=== PATIENT | female | born 1995 | race Caucasian/White ===

== ENCOUNTER 2018-01-19 19:30 | Inpatient (IN) | payer OTHER ==
[2018-01-19 20:48] LABS: BASO % 0.3 % (0-2.0); EOS % 0.6 % (0-4.5); HEMATOCRIT 30.7 % (32.4-45.2); HEMOGLOBIN 10.4 GM/dL (10.7-15.3); LYMPH % 17.6 % (8-40); MCH 29.3 pg (25.7-33.7); MCHC 33.9 g/dl (32.0-36.0); MEAN CELL VOLUME 86.5 fl (80-96); MONO % 7.1 % (3.8-10.2); NEUT % 74.4 % (42.8-82.8); PLATELET COUNT 193 K/MM3 (134-434); RBC 3.55 M/mm3 (3.60-5.2); RDW 14.4 % (11.6-15.6); WHITE BLOOD COUNT 8.2 K/mm3 (4.0-10.0)
[2018-01-19 20:59] LABS: INR 0.95 (0.82-1.09); PROTHROMBIN TIME (PATIENT) 10.7 SEC (9.98-11.88)
[2018-01-19] MEDS ORDERED: DINOPROSTONE 10 MG VAGINAL SUPPOSITORY VG ONE (21:00)
[2018-01-19] MEDS ORDERED: DEXTROSE 5%-LACTATED RINGERS 1,000 ML IV SCH (21:00)
[2018-01-19] MEDS: DEXTROSE 5%-LACTATED RINGERS 1,000 ML IV SCH (21:00)
[2018-01-19] MEDS ORDERED: levETIRAcetam 250 MG TABLET (FP) PO SCH (21:00)
[2018-01-19 21:02] LABS: ACTIVATED PTT 24.2 SECONDS (26.9-34.4)
[2018-01-19 21:09] LABS: ANION GAP 11 (8-16); BLOOD UREA NITROGEN 10 mg/dL (7-18); CALCIUM 8.5 mg/dL (8.5-10.1); CHLORIDE 106 mmol/L (98-107); CO2 22 mmol/L (21-32); CREATININE 0.5 mg/dL (0.55-1.02); GLUCOSE,RANDOM 82 mg/dL (74-106); POTASSIUM 4.1 mmol/L (3.5-5.1); SODIUM 139 mmol/L (136-145)
[2018-01-19] MEDS ORDERED: levETIRAcetam 500 MG TABLET (FP) PO ONE (22:15)
[2018-01-19 22:55] VITALS: BMI 31.3
[2018-01-20] MEDS: DEXTROSE 5%-LACTATED RINGERS 1,000 ML IV SCH ×3 (01:30→16:35)
[2018-01-20] MEDS ORDERED: SODIUM PHOSPHATE/NA BIPHOS 133 ML ENEMA RC ONE (06:00)
[2018-01-20] MEDS: levETIRAcetam 250 MG TABLET (FP) PO SCH ×2 (09:30→21:16)
--- NOTE | 2018-01-20 09:33 | CON.NEURO ---
Consult - Past Medical History ...LMP: 04/28/17 - Alcohol/Substance Use Hx Alcohol Use: No - Smoking History Smoking history: Former smoker Have you smoked in the past 12 months: No If you are a former smoker, when did you quit?: prior to Home Medications - Allergies Allergies/Adverse Reactions: Allergies Allergy/AdvReac Type Severity Reaction Status Date / Time No Known Allergies Allergy Verified 01/19/18 23:07 - Home Medications Home Medications: Ambulatory Orders levETIRAcetam [Keppra -] 750 mg PO BID 10/09/17 Physical Exam-Neuro Vital Signs: Vital Signs Temperature 98.0 F 01/20/18 06:00 Pulse Rate 62 01/20/18 08:00 Respiratory Rate 17 01/20/18 08:00 Blood Pressure 108/62 01/20/18 08:00 O2 Sat by Pulse Oximetry (%) Labs: CBC, BMP 01/19/18 20:15 01/19/18 20:15 INR, PTT INR 0.95 (0.82-1.09) 01/19/18 20:15 Assessment/Plan cc Episode of seizure yesterday HPI 22 year old female history of epilepsy since age of 13. She was diagnosed with hydrocephalus and she had deedee hole surgery , and had twice drained. Patient do get chronic headhace . Patient also suffers from depression was suppose to be on abilify but was stopped due to She was suppose to be taking keppra 750 mg po bid and she reduce dose to once a day. Patient had seizure two days ago and one episode one month ago. Patient having headhace and on previous occasion she went [facility]. She is being induced She described seizure as tonic clonic activity, sometime tongue bite and post ictal confusion Past Medical History as above SH,FH, ROS reviewed in chart Neurological Examination VSS Alert oriented x 3 CN all intact, eomi, pupils reactive and no face asymmetry moving all extremity sensory exm is normal no ct head available Assessment- 22 YEAR OLD female history of Hydrocephalus, seizures and depression. Patient had ct head done in past one year and no records available. Patient had deedee hole surgery and removal of csf when she was 13 and 15 Plan - given she has seizure and she is having breakthrough seizure, She was loaded with keppra 1 gm last night and continue 750 mg po bid - In case she had seizure, her electrolyte, puls ox and serum glucose can be checked and she can be given iv ativan to breakthrough seizure and extra one gram of keppra can be given and Medical team can be consulted Thanking you so much Alex Peace MD Please feel free to call me if you have any question
[2018-01-20] MEDS ORDERED: ACETAMINOPHEN 325 MG TABLET (FP) PO ONE (10:26)
[2018-01-20] MEDS ORDERED: OXYTOCIN 30 UNITS in 0.9% NS 30 UNIT/500 ML INFUS.BAG IVPB SCH (10:30)
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
[2018-01-20] MEDS ORDERED: PROMETHAZINE HCL 25 MG/1 ML VIAL IVPUSH ONE (15:02)
[2018-01-20] MEDS ORDERED: BUTORPHANOL TARTRATE 1 MG/ML VIAL IVPUSH ONE (15:02)
--- NOTE | 2018-01-20 15:04 | PN ---
Progress Note, Labor Vaginal Exam #1 Labor Exam Date: 01/20/18 Labor Exam Time: 15:00 Heart Rate (range): 130 Dilatation: 1-2 Effacement (%): 70 Amniotic Membrane Status: Intact Presentation: Vertex/Position Station: -2 Remarks: FHR cat-1 ut contractions dysfunctional 1-3 min c/o headache Plan iv stadol 2mg + phenrgan 25 mg iv stat Selected Entries 01/20/18 14:00 Temperature 97.8 F Pulse Rate 58 L Blood Pressure 119/74 Vaginal Exam #2 Labor Exam Date: 01/20/18 Labor Exam Time: 17:30 Heart Rate (range): 130 Dilatation: 2 Effacement (%): 70 Amniotic Membrane Status: Intact Presentation: Vertex/Position Station: -3 Remarks: fhr cat-1 uc 2-4 min . Pt is unable to tolerate pain. she wants to leave the hosp. I offered her epidural for pain managemant she refuses induction & pitocin to be continued . She agrees for c/section . Plan stop Pitocin Induction . prepare for c/section
[2018-01-20] MEDS ORDERED: CITRIC ACID/SODIUM CITRATE 30 ML UNIT-DOSE CUP PO ONE (17:44)
[2018-01-20] MEDS ORDERED: ELECTROLYTE-148 SOLN 1,000 ML IV SCH (17:45)
[2018-01-20] MEDS ORDERED: SUCCINYLCHOLINE CHLORIDE 200 MG/10 ML VIAL ONE (19:06)
[2018-01-20] MEDS ORDERED: PROPOFOL 20 ML ONE (19:07)
[2018-01-20] MEDS ORDERED: ceFAZolin SODIUM 1 GM VIAL ONE (19:08)
[2018-01-20] MEDS ORDERED: DEXAMETHASONE SOD PHOSPHATE 4 MG/1 ML VIAL ONE (19:23)
[2018-01-20] MEDS ORDERED: OXYTOCIN 10 UNITS/ML VIAL ONE ×2 (19:23→19:35)
[2018-01-20 19:58] LABS: ARTERIAL BLOOD GAS BASE EXCESS -1.8 meq/l (-2-2); ARTERIAL BLOOD GAS PCO2 57.9 mmHg (35-45); ARTERIAL BLOOD GAS pH 7.27 (7.35-7.45)
[2018-01-20] MEDS ORDERED: METHYLERGONOVINE MALEATE 0.2 MG/1 ML AMP IM PRN (20:07)
[2018-01-20 20:09] LABS: ARTERIAL BLD GAS O2 SATURATION 32.9 % (90-98.9)
[2018-01-20 20:11] LABS: VENOUS PH 7.33 (7.32-7.42)
[2018-01-20 20:12] LABS: VENOUS PC02 42.6 mmHg (38-52); VENOUS PO2 51.7 mmHg (28-48)
[2018-01-20] MEDS ORDERED: OXYTOCIN 20 UNITS in 0.9% NS 20 UNIT/1,000 ML INFUS.BAG IV SCH (20:15)
[2018-01-20] MEDS ORDERED: ONDANSETRON 4 MG/2 ML VIAL IVPUSH PRN (20:17)
[2018-01-20] MEDS ORDERED: HYDROmorphone HCL CARPU-JECT 1 MG/1 ML DISP.SYRIN IVPUSH ONE ×2 (20:20→20:45)
--- NOTE | 2018-01-20 20:21 | OP ---
Operative Note - Note: Operative Date: 01/20/18 Pre-Operative Diagnosis: 40.5 weeks , failed induction of labor , seizure disorder Operation: primary lftc/s Findings: 7.22 Pm , baby boy, vx Lot, 8/9 , wt 6'2" Ht 18.5" both tubes & ovaries normal Dr collazo present inthe OR Surgeon: Madie Ta Carpet Inspector: Herman Cardona Anesthesiologist/CRIMINOLOGY PROFESSOR: Kuldeep Westfall Anesthesia: General Specimens Removed: placenta. cord blood gas. cord blood Estimated Blood Loss (mls): 600 Drains, Volume Out (mls): 150 (mauro color ) Fluid Volume Replaced (mls): 1,000 (iv ancef 1 gm ivpb ) Operative Report Dictated: Yes
[2018-01-20] MEDS ORDERED: ACETAMINOPHEN 1000 MG/100 ML VIAL (NON FORMULARY) IVPB ONE (20:22)
[2018-01-20] MEDS ORDERED: HYDROmorphone HCL CARPU-JECT 1 MG/1 ML DISP.SYRIN ONE (20:26)
[2018-01-20] MEDS ORDERED: HYDROmorphone *PCA* 10MG/50ML DISP.SYRIN PCA SCH ×2 (20:30→20:45)
[2018-01-20] MEDS ORDERED: HYDROmorphone *PCA* 6MG/30ML DISP.SYRIN PCA SCH (20:30)
--- NOTE | 2018-01-20 20:45 | PN ---
Delivery - Delivery Section: Primary, Low Flap Transverse (40.5 weeks , failed induction of labor , seizure disorder) Type of Anesthesia: General Episiotomy/Laceration: None EBL (cc): 600 (huang out put 150 ml ) Delivery, Single - Stages of Labor Date 1st Stage Initiatied: 01/20/18 Time 1st Stage Initiated: 14:30 Date of Delivery: 01/20/18 Time of Delivery: 19:22 Time Placenta Delivered: :23 Placenta: Yes: Manual Removal, Uterine Exploration - Condition of Mail Room/Quantitative Manager Present: Yes Name: Mary Lou Simmons Infant Gender: Male Weight: 6 lb 2 oz Position: Left, OT Total Hours ROM (Hrs/Mins): 0hrs 2min - 1 Minute Total Score: 8 5 Minutes Total Score: 9 - Feeding Plan Initial Plan: Elected not to breastfeed exclusively throughout hospitalization Remarks - Remarks Remarks: 22 yrs , 40 .5 weeks, gbs neg pnc at 2, [facility] h/o sizure disorder , rx keppra 750 mg bid recommended, pt was taking only one a day , last seizure on 01/18/18 neuro consult intrapartum ontained , Ct rx po keppra 750 mg bid 01/19/18 cervidil inserted for induction 01/20/18 pitocin induction, pt uncooperative, refused to continue induction, requests for c/section Intra op course uneventful rx
[2018-01-20] MEDS ORDERED: ACETAMINOPHEN INJECTION 100 ML IVPB ONE (20:47)
[2018-01-20] MEDS ORDERED: HYDROmorphone *PCA* 6MG/30ML DISP.SYRIN PCA ONE (21:06)
[2018-01-20] MEDS: HYDROmorphone *PCA* 6MG/30ML DISP.SYRIN PCA SCH (21:13)
--- NOTE | 2018-01-20 23:10 | OP ---
DATE OF OPERATION: 01/20/2018 PREOPERATIVE DIAGNOSIS: 40.5 weeks for induction of labor. POSTOPERATIVE DIAGNOSIS: 40.5 weeks for induction of labor. PROCEDURE DONE: Primary low transverse section. SURGEON: Madie Ta M.D. CARDIOVASCULAR RADIOLOGIC TECHNOLOGIST SURGEON: Caitlin Leiva ANESTHESIOLOGIST: Kuldeep Westfall D.O. ANESTHESIA: General. FINDINGS: This is a 22-year-old 2 para 0-0-1-0, is 40.5 weeks and has history of a seizure disorder and had seizure on January 18, and she was on Keppra 750 b.i.d. She was taking irregularly and maybe once a day only, and history of hydrocephalus diagnosed and she has history of deedee hole surgery done for release of hydrocephalus. , Since there were no notes from the previous neurologist consults , anesthesiologist decided to give general anesthesia. Patient was induced with cervidil followed by , pitocin , cx dilated 2 cm, but she refused to continue induction of labor. PROCEDURE: Patient was taken to the operating room table, and Arango catheter was placed. Abdomen was shaved, prepped. Abdomen was painted and draped in usual manner. General anesthesia was given. Pfannenstiel incision was made through skin, subcutaneous tissue. Anterior rectus sheath was incised transversely. Bleeding points were clamped and cauterized. Rectus muscle was from the rectus sheath. The parietal peritoneum was opened vertically. And then lower uterine segment was incised transversely. Before that lower bladder peritoneum was incised transversely. Bladder was pushed and then the lower uterine segment was incised transversely and amniotic fluid was cleared. Baby boy was delivered at 7:22 p.m. from the LOT position. was 8, 9. Weight was 6 pounds 2 ounces. Cord was clamped, cut. Cord blood was collected, and also cord segment was sent for the cord blood gas. Placenta was removed completely with the membranes and sent for pathology examination. Then the closure of the uterine incision was done. Uterine cavity was cleaned complete. The uterine incision first layer was Biosyn 0 continuos locking suture. Second layer was continuous with Biosyn intermittent locking and with vertical mattress sutures. Bladder peritoneum was also closed with Biosyn 0 suture. Then both tubes and ovaries were normal. Irrigation was done. Sponge, instrument, needle counts were correct. Closure of the uterine incision was done in 2 layers. Parietal peritoneum was closed with the Vicryl 0 suture. Then muscles were approximated with 0 Vicryl interrupted sutures. Anterior rectus sheath was closed with 0 Vicryl continuous sutures. Hemostasis was checked below the anterior rectus sheath before closing the anterior rectus sheath. Subcutaneous tissue, interrupted sutures were taken, and the skin was approximated with the benoit. Patient tolerated procedure well. Estimated blood loss was 600 mL. The urine output intraoperatively was 150 mL. Prior to the incision she was given IV Ancef 1 g. Patient tolerated procedure well, and she was transferred to the recovery room in stable condition. Silas [id number] MTDD
[2018-01-21] MEDS: CEFAZOLIN 1 GM/D5W 1 GM/50 ML BAG IVPB SCH ×3 (02:12→17:01)
[2018-01-21 07:57] LABS: BASO % 0.2 % (0-2.0); HEMATOCRIT 29.9 % (32.4-45.2); HEMOGLOBIN 9.8 GM/dL (10.7-15.3); LYMPH % 12.9 % (8-40); MCH 28.5 pg (25.7-33.7); MCHC 32.7 g/dl (32.0-36.0); MEAN PLT VOLUME 10.4 fl (7.5-11.1); MONO % 6.7 % (3.8-10.2); NEUT % 80.2 % (42.8-82.8); PLATELET COUNT 159 K/MM3 (134-434); RBC 3.44 M/mm3 (3.60-5.2); RDW 14.2 % (11.6-15.6); WHITE BLOOD COUNT 14.5 K/mm3 (4.0-10.0)
[2018-01-21] MEDS ORDERED: ACETAMINOPHEN 325 MG TABLET (FP) PO PRN (08:00)
--- NOTE | 2018-01-21 08:15 | PN ---
Post Progress Note - Subjective Subjective: no c/o pain . pt using QUAL FIELD MANAGER pt appears pleasnt Post Day: 1 Type of Delivery: Primary C/S Vital Signs: Vital Signs Temperature 98.3 F 01/21/18 06:45 Pulse Rate 65 01/21/18 06:45 Respiratory Rate 20 01/21/18 06:45 Blood Pressure 118/65 01/21/18 06:45 O2 Sat by Pulse Oximetry (%) 100 01/20/18 21:00 Breast Exam: Yes: Soft, Other (bottle feeding). No: Engorged Uterus: Yes: Fundus Firm, Fundus below umbilicus Incision: Yes: Dressing dry and intact. No: Redness, Oozing Abdomen/GI: Yes: Abdomen soft (bs active ), Tolerating PO (tolerating po fluids ). No: Abdominal Distention, Tender, Passing flatus Lochia: Yes: Rubra Lochia, amount: Moderate Extremities: Yes: Calves non-tender, Edema (scd in situ ) Perineum: Yes: Intact Activity: Other (not oob yet ) - Labs Labs: CBC WBC 14.5 K/mm3 (4.0-10.0) H D 01/21/18 07:00 RBC 3.44 M/mm3 (3.60-5.2) L 01/21/18 07:00 Hgb 9.8 GM/dL (10.7-15.3) L 01/21/18 07:00 Hct 29.9 % (32.4-45.2) L 01/21/18 07:00 MCV 87.0 fl (80-96) 01/21/18 07:00 MCH 28.5 pg (25.7-33.7) 01/21/18 07:00 MCHC 32.7 g/dl (32.0-36.0) 01/21/18 07:00 RDW 14.2 % (11.6-15.6) 01/21/18 07:00 Plt Count 159 K/MM3 (134-434) 01/21/18 07:00 MPV 10.4 fl (7.5-11.1) 01/21/18 07:00 Neutrophils % 80.2 % (42.8-82.8) 01/21/18 07:00 Lymphocytes % 12.9 % (8-40) D 01/21/18 07:00 Monocytes % 6.7 % (3.8-10.2) 01/21/18 07:00 Eosinophils % 0.0 % (0-4.5) D 01/21/18 07:00 Basophils % 0.2 % (0-2.0) 01/21/18 07:00 Other Findings, Remarks: i/o 1050/1000 huang draining mauro color urine RS cta Problem List - Problems (1) Post term over 40 weeks Code(s): O48.0 - POST-TERM (2) Elective induction of labor planned Code(s): [id number] - (3) Seizure Code(s): R56.9 - UNSPECIFIED CONVULSIONS (4) Anemia Code(s): D64.9 - ANEMIA, UNSPECIFIED Qualifiers: Anemia type: iron deficiency Iron deficiency anemia type: inadequate dietary iron intake Qualified Code(s): D50.8 - Other iron deficiency anemias (5) Failed induction of labor, delivered Code(s): O61.9 - FAILED INDUCTION OF LABOR, UNSPECIFIED (6) delivery due to maternal disorder, delivered, curr hospitaliz Code(s): O82 - ENCOUNTER FOR DELIVERY WITHOUT INDICATION; O99.89 - OTH DISEASES AND CONDITIONS COMPL PREG/CHLDBRTH Assessment/Plan ass s/p c/section day #1 , stable s/p seizure disorder anemia plan ct po Keppra change to po pain meds encourage ambulation, deep breathing, po fluids after huang is discontinued
[2018-01-21] MEDS ORDERED: oxyCODONE HCL 5 MG TABLET PO PRN (08:44)
[2018-01-21] MEDS: FERROUS SO4 325 MG TABLET (FP) PO SCH ×2 (08:52→18:30)
[2018-01-21] MEDS: SIMETHICONE 80 MG TAB.CHEW (FP) PO PRN ×3 (09:11→19:42)
[2018-01-21] MEDS: oxyCODONE HCL 5 MG TABLET PO PRN ×3 (09:11→19:42)
[2018-01-21] MEDS: ENOXAPARIN NA (PORCINE) 40 MG/0.4 ML DISP.SYRIN SQ SCH (10:10)
[2018-01-21] MEDS: levETIRAcetam 250 MG TABLET (FP) PO SCH ×2 (10:16→21:44)
[2018-01-21] MEDS: IBUPROFEN 600 MG TABLET (FP) PO PRN ×3 (10:17→19:43)
--- NOTE | 2018-01-21 13:57 | PN ---
Progress Note (short form) - Note Progress Note: HPI 22 year old female history of epilepsy since age of 13. She was diagnosed with hydrocephalus and she had deedee hole surgery , and had twice drained. Patient do get chronic headhace . Patient also suffers from depression was suppose to be on abilify but was stopped due to She was suppose to be taking keppra 750 mg po bid and she reduce dose to once a day. She was being induced later she was given epidural , I was called yesterday evening if they can given epidura. There was no contraindication. It went very well and she did deliver and both mom and baby are healthy. No seizure Neurological Examination VSS Alert oriented x 3 CN all intact, eomi, pupils reactive and no face asymmetry moving all extremity sensory exm is normal no ct head available Assessment- 22 YEAR OLD female history of Hydrocephalus, seizures and depression. Patient had ct head done in past one year and no records available. Patient had deedee hole surgery and removal of csf when she was 13 and 15 Plan - continue current level of medication and keppra and she can be given ativan if she had seizure would follow up outpatient Thanking you so much Alex Peace MD Please feel free to call me if you have any question
--- NOTE | 2018-01-21 16:54 | PN ---
Progress Note (short form) - Note Progress Note: POD #1 - s/p under general anesthesia with dilaudid DATA PROCESSOR for postop pain management. Pt. doing well, sitting comfortably in chair. No complaints. DATA PROCESSOR was discontinued earler today. Good pain control. No apparent anesthetic complications noted. Continue current care.
[2018-01-21] MEDS ORDERED: PCA PUMP KEY 1 EACH EACH ONE (18:07)
[2018-01-21] MEDS ORDERED: BISACODYL 10 MG SUPP.RECT RC PRN (20:07)
[2018-01-22] MEDS: IBUPROFEN 600 MG TABLET (FP) PO PRN ×3 (08:06→22:08)
[2018-01-22] MEDS: oxyCODONE HCL 5 MG TABLET PO PRN ×3 (08:07→22:07)
[2018-01-22] MEDS: SIMETHICONE 80 MG TAB.CHEW (FP) PO PRN ×3 (08:08→22:08)
[2018-01-22] MEDS: FERROUS SO4 325 MG TABLET (FP) PO SCH ×2 (08:08→17:44)
[2018-01-22] MEDS: levETIRAcetam 250 MG TABLET (FP) PO SCH ×2 (09:34→22:07)
[2018-01-22] MEDS: ENOXAPARIN NA (PORCINE) 40 MG/0.4 ML DISP.SYRIN SQ SCH (09:34)
[2018-01-22] MEDS: PRENATAL VITAMINS W/ FOLIC ACID TABLET (FP) PO SCH (09:42)
--- NOTE | 2018-01-22 10:26 | PN ---
Post Progress Note - Subjective Subjective: Pt feeling well. Ambulating. Pain well controlled. tolerating diet. +flatus Post Day: 2 Type of Delivery: Primary C/S Vital Signs: Vital Signs Temperature 98.2 F 01/22/18 07:50 Pulse Rate 70 01/22/18 07:50 Respiratory Rate 20 01/22/18 07:50 Blood Pressure 120/70 01/22/18 07:50 O2 Sat by Pulse Oximetry (%) 100 01/20/18 21:00 Breast Exam: Yes: Soft Uterus: Yes: Fundus Firm Incision: Yes: [place] intact Abdomen/GI: Yes: Abdomen soft Lochia: Yes: Rubra Lochia, amount: Small Extremities: Yes: Calves non-tender Perineum: Yes: Intact Activity: Ambulating - Labs Labs: CBC WBC 14.5 K/mm3 (4.0-10.0) H D 01/21/18 07:00 RBC 3.44 M/mm3 (3.60-5.2) L 01/21/18 07:00 Hgb 9.8 GM/dL (10.7-15.3) L 01/21/18 07:00 Hct 29.9 % (32.4-45.2) L 01/21/18 07:00 MCV 87.0 fl (80-96) 01/21/18 07:00 MCH 28.5 pg (25.7-33.7) 01/21/18 07:00 MCHC 32.7 g/dl (32.0-36.0) 01/21/18 07:00 RDW 14.2 % (11.6-15.6) 01/21/18 07:00 Plt Count 159 K/MM3 (134-434) 01/21/18 07:00 MPV 10.4 fl (7.5-11.1) 01/21/18 07:00 Neutrophils % 80.2 % (42.8-82.8) 01/21/18 07:00 Lymphocytes % 12.9 % (8-40) D 01/21/18 07:00 Monocytes % 6.7 % (3.8-10.2) 01/21/18 07:00 Eosinophils % 0.0 % (0-4.5) D 01/21/18 07:00 Basophils % 0.2 % (0-2.0) 01/21/18 07:00 Problem List - Problems (1) delivery due to maternal disorder, delivered, curr hospitaliz Assessment/Plan: Pt POD#2 s/p primary c/s continue routine postop care incentive spirometry pain management as needed ambulation encouraged Dr. Watkins Code(s): O82 - ENCOUNTER FOR DELIVERY WITHOUT INDICATION; O99.89 - OTH DISEASES AND CONDITIONS COMPL PREG/CHLDBRTH
[2018-01-22] MEDS: HYDROmorphone *PCA* 6MG/30ML DISP.SYRIN PCA SCH ×2 (22:22→22:23)
--- NOTE | 2018-01-23 07:19 | PN ---
Post Progress Note - Subjective Subjective: 22 yo Para 1 status post primary , seen and evaluated. She's lying comfortably in bed. No complaints. Post Day: 3 Type of Delivery: Primary C/S Vital Signs: Vital Signs Temperature 98.2 F 01/22/18 21:55 Pulse Rate 85 01/22/18 21:55 Respiratory Rate 18 01/22/18 21:55 Blood Pressure 110/53 01/22/18 21:55 O2 Sat by Pulse Oximetry (%) 100 01/20/18 21:00 Breast Exam: Yes: Soft Uterus: Yes: Fundus Firm Incision: Yes: [place] intact Abdomen/GI: Yes: Abdomen soft, Tolerating PO Lochia: Yes: Rubra Lochia, amount: Small Extremities: Yes: Calves non-tender Activity: Ambulating - Labs Labs: CBC WBC 14.5 K/mm3 (4.0-10.0) H D 01/21/18 07:00 RBC 3.44 M/mm3 (3.60-5.2) L 01/21/18 07:00 Hgb 9.8 GM/dL (10.7-15.3) L 01/21/18 07:00 Hct 29.9 % (32.4-45.2) L 01/21/18 07:00 MCV 87.0 fl (80-96) 01/21/18 07:00 MCH 28.5 pg (25.7-33.7) 01/21/18 07:00 MCHC 32.7 g/dl (32.0-36.0) 01/21/18 07:00 RDW 14.2 % (11.6-15.6) 01/21/18 07:00 Plt Count 159 K/MM3 (134-434) 01/21/18 07:00 MPV 10.4 fl (7.5-11.1) 01/21/18 07:00 Neutrophils % 80.2 % (42.8-82.8) 01/21/18 07:00 Lymphocytes % 12.9 % (8-40) D 01/21/18 07:00 Monocytes % 6.7 % (3.8-10.2) 01/21/18 07:00 Eosinophils % 0.0 % (0-4.5) D 01/21/18 07:00 Basophils % 0.2 % (0-2.0) 01/21/18 07:00 Assessment/Plan Status post primary Stable Continue routine post op care
[2018-01-23 08:36] LABS: BASO % 0.7 % (0-2.0); EOS % 1.5 % (0-4.5); HEMATOCRIT 29.1 % (32.4-45.2); HEMOGLOBIN 9.6 GM/dL (10.7-15.3); LYMPH % 29.1 % (8-40); MCH 28.6 pg (25.7-33.7); MCHC 32.9 g/dl (32.0-36.0); MEAN CELL VOLUME 86.9 fl (80-96); MEAN PLT VOLUME 9.9 fl (7.5-11.1); MONO % 7.9 % (3.8-10.2); NEUT % 60.8 % (42.8-82.8); PLATELET COUNT 171 K/MM3 (134-434); RBC 3.35 M/mm3 (3.60-5.2); RDW 14.3 % (11.6-15.6)
[2018-01-23] MEDS: FERROUS SO4 325 MG TABLET (FP) PO SCH ×2 (08:43→17:11)
[2018-01-23] MEDS: PRENATAL VITAMINS W/ FOLIC ACID TABLET (FP) PO SCH (10:04)
[2018-01-23] MEDS: ENOXAPARIN NA (PORCINE) 40 MG/0.4 ML DISP.SYRIN SQ SCH (10:04)
[2018-01-23] MEDS: oxyCODONE HCL 5 MG TABLET PO PRN ×2 (10:07→18:32)
[2018-01-23] MEDS: IBUPROFEN 600 MG TABLET (FP) PO PRN ×2 (10:08→18:32)
[2018-01-23] MEDS: levETIRAcetam 250 MG TABLET (FP) PO SCH ×2 (10:09→21:53)
[2018-01-23] MEDS: SIMETHICONE 80 MG TAB.CHEW (FP) PO PRN ×2 (10:09→18:33)
--- NOTE | 2018-01-23 16:44 | PN ---
Progress Note (short form) - Note Progress Note: 22 year old female history of epilepsy since age of 13. She was diagnosed with hydrocephalus and she had deedee hole surgery , and had twice drained. Patient do get chronic headhace . Patient also suffers from depression was suppose to be on abilify but was stopped due to She was suppose to be taking keppra 750 mg po bid and she reduce dose to once a day. She is tolerating medication well and no side effects of medication. Neurological Examination VSS Alert oriented x 3 CN all intact, eomi, pupils reactive and no face asymmetry moving all extremity sensory exm is normal no ct head available Assessment- 22 YEAR OLD female history of Hydrocephalus, seizures and depression. Patient had ct head done in past one year and no records available. Patient had deedee hole surgery and removal of csf when she was 13 and 15 Plan - continue keppra 750 mg po bid tolerating dose and follow up outpatient Please feel free to call me if you have any question
[2018-01-23 20:57] VITALS: TEMP 98.2
[2018-01-24] MEDS: FERROUS SO4 325 MG TABLET (FP) PO SCH (07:43)
[2018-01-24] MEDS: oxyCODONE HCL 5 MG TABLET PO PRN (07:48)
[2018-01-24] MEDS: IBUPROFEN 600 MG TABLET (FP) PO PRN (07:49)
[2018-01-24] MEDS: SIMETHICONE 80 MG TAB.CHEW (FP) PO PRN (07:50)
--- NOTE | 2018-01-24 09:23 | DS ---
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 Vital Signs: Vital Signs Temperature 98.2 F 01/23/18 20:56 Pulse Rate 79 01/23/18 20:56 Respiratory Rate 20 01/23/18 20:56 Blood Pressure 114/68 01/23/18 20:56 O2 Sat by Pulse Oximetry (%) 100 01/20/18 21:00 Constitutional: Yes: Well Nourished Eyes: Yes: Conjunctiva Clear HENT: Yes: Atraumatic Neck: Yes: Supple Cardiovascular: Yes: Regular Rate and Rhythm Respiratory: Yes: Regular Gastrointestinal: Yes: Normal Bowel Sounds External Genitalia: Yes: Normal Vaginal Exam: Yes: Normal Cervix: Yes: Normal Uterus: Yes: Firm Wound/Incision: Yes: Clean/Dry, Reading Intact Neurological: Yes: Alert, Oriented ...Motor Strength: WNL Psychiatric: Yes: Alert, Oriented Labs: CBC, BMP 01/23/18 07:45 01/19/18 20:15 Delivery - Delivery Section: Primary, Low Flap Transverse (40.5 weeks , failed induction of labor , seizure disorder) Type of Anesthesia: General Episiotomy/Laceration: None EBL (cc): 600 (huang out put 150 ml ) Delivery, Single - Stages of Labor Date 1st Stage Initiatied: 01/20/18 Time 1st Stage Initiated: 14:30 Date of Delivery: 01/20/18 Time of Delivery: 19:22 Time Placenta Delivered: 19:23 Placenta: Yes: Manual Removal, Uterine Exploration - Condition of 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/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 Present: Yes Name: Mary Lou Simmons Infant Gender: Male Weight: 6 lb 2 oz Position: Left, OT Total Hours ROM (Hrs/Mins): 0hrs 2min - 1 Minute Total Score: 8 5 Minutes Total Score: 9 - [place] Feeding Plan Initial Plan: Elected not to breastfeed exclusively throughout hospitalization Discharge Summary Reason For Visit: CERVIDIL INDUCTION Current Active Problems Anemia (Acute) delivery due to maternal disorder, delivered, curr hospitaliz (Acute) Elective induction of labor planned (Acute) Failed induction of labor, delivered (Acute) Post term over 40 weeks (Acute) Seizure (Acute) Procedures: Principal: Primary Low Transverse Hospital Course: Routine Post op care Condition: Good - Instructions Diet, Activity, Other Instructions: Regular diet No driving, no lifting for 4 weeks. F/U in clinic in 2 weeks Disposition: HOME - Home Medications Comprehensive Discharge Medication List: Ambulatory Orders levETIRAcetam [Keppra -] 750 mg PO BID 10/09/17
[2018-01-24] MEDS: PRENATAL VITAMINS W/ FOLIC ACID TABLET (FP) PO SCH (09:39)
[2018-01-24] MEDS: ENOXAPARIN NA (PORCINE) 40 MG/0.4 ML DISP.SYRIN SQ SCH (09:39)
[2018-01-24] MEDS: levETIRAcetam 250 MG TABLET (FP) PO SCH (09:40)
[2018-01-24 10:57] VITALS: BP 116/73; PULSE 65
--- NOTE | 2018-01-28 09:18 | PATH ---
Surgical Pathology Report Patient Name: MARCIN GUAN [facility]. Rec. #: [id number] /Age/Gender: 1995 (Age: 22) / F Account: [id number] Location: [facility] OBS/ARCHIVIST ECONOMIC HISTORY Taken: 01/21/2018 Received: 01/21/2018 Reported: 01/28/2018 Physicians: Madie Ta M.D. Specimen(s) Received PLACENTA Clinical History Final Diagnosis PLACENTA, DELIVERY: SMALL (333 gram) FOCALLY DISRUPTED THIRD TRIMESTER PLACENTA WITH THREE VESSEL UMBILICAL CORD AND UNREMARKABLE PLACENTAL MEMBRANES. Electronically Signed Turner Sifuentes M.D. Gross Description The specimen is received fresh labeled placenta and is a 333 gram, 16.0 x 15.5 x 2.2 cm. placenta with attached membranes and umbilical cord. The attached membranes are christensen, translucent with focal opacities and insert marginally. The umbilical cord measures 13 cm. in length and averages 1 cm. in diameter. The cord inserts eccentrically, 2 cm. to the nearest margin. No true knots or strictures are identified. Cut surface of the umbilical cord reveals 3 vessels. The surface is marshall-blue with minimal fibrin deposition and appropriate caliber vessels. The maternal surface is red-brown with focal defects. Sectioning reveals red-brown, spongy parenchyma. No lesions are identified. Data Security Administrator sections are submitted in three cassettes as follows: 1- membrane rolls and umbilical cord; 2-3- full thickness sections of placenta. /01/25/2018 [facility]01/25/2018
== END 2018-01-24 12:10 | disposition home or self-care (01) | DRG 540 ==
LOC: JLDR 19:30 → J3W 01-20 21:45
PROVIDERS: ADMIT Obstetrics & Gynecology; ATTEND Obstetrics & Gynecology
PROC: 3E0P7VZ Introduction of Hormone into Female Reproductive, Via Natural or Artificial Opening (ICD-10-PCS; 2018-01-19)
PROC: 10D00Z1 Extraction of Products of Conception, Low, Open Approach (ICD-10-PCS; principal; 2018-01-20)
DX: O61.0 Failed medical induction of labor (principal); O99.02 Anemia complicating childbirth; O48.0 Post-term pregnancy; O99.89 Other specified diseases and conditions complicating pregnancy, childbirth and the puerperium; G40.909 Epilepsy, unspecified, not intractable, without status epilepticus; Z3A.40 40 weeks gestation of pregnancy; Z37.0 Single live birth
CPT/HCPCS: 36415; 36600; 80048; 82803; 85025; 85610; 85730; 86593; 86850; 86900; 86901; 88307-TC; 94010; J0131; J1170

== ENCOUNTER 2018-04-25 16:53 | Emergency (ER) | payer OTHER ==
[2018-04-25] MEDS ORDERED: levETIRAcetam 500 MG/5 ML INJECTION VIAL IVPB ONE ×3 (17:59→18:39)
--- NOTE | 2018-04-25 18:00 | PDOC ---
Attending Attestation - Resident Resident Name: Zafar Valencia - ED Attending Attestation I have performed the following: I have examined & evaluated the patient, The case was reviewed & discussed with the resident, I agree w/resident's findings & plan, Exceptions are as noted - HPI HPI: 04/25/18 20:04 22-year-old female was leaving her neurologist office and had a seizure outside the building. Came in by ambulance and wanted to go home without any care. She was persuaded to stay to get a loading dose of her Keppra -Past medical history significant for epilepsy since age of 13. We did speak with her neurologist, Dr. Taylor who requested she get 1500 mg of Keppra before leaving - Physicial Exam PE: 04/25/18 20:08 Well-nourished, well developed 22-year-old female who is standing beside speaking with family member. Head normocephalic/atraumatic. Intraoral exam shows tongue trauma Eyes pupils equal, reactive to light and accommodation. Neck no cervical vertebral tenderness Lungs are clear to auscultation bilaterally CVS regular rate and rhythm S1, S2 Abdomen soft, nontender Extremities full range of mvmt, or deformities. Neuro she is alert and oriented 3, she is ambulating with ease - Medical Decision Making 04/25/18 20:10 Patient did receive a 1500mg IV dose of Keppra and is currently being discharged. Impression epilepsy. Plan follow-up with Dr. Sherman
--- NOTE | 2018-04-25 18:08 | PDOC ---
History of Present Illness - General Stated Complaint: SEIZURE - History of Present Illness Initial Comments: 04/25/18 18:05 22 year old female hx of epilepsy presents s/p seizure. She reports that she saw her neurologist Dr. Peace today, who increased her dose of Keppra to 1000 BID. Patient states that as she was leaving the office, she seized on her way out. Patient denies hitting her head but says she may have bitten her tongue. Denies any chest pain, shortness of breath, headache, nausea, vomiting, or diarrhea. Allergies: none Smoking: current Alcohol: none Drugs: denies Neurologist: Dr. Peace Past History - Past Medical History Allergies/Adverse Reactions: Allergies Allergy/AdvReac Type Severity Reaction Status Date / Time No Known Allergies Allergy Verified 01/19/18 23:07 Home Medications: Ambulatory Orders levETIRAcetam [Keppra -] 750 mg PO BID 10/09/17 Acetaminophen [Tylenol .Regular Strength -] 500 mg PO Q4H PRN #30 tablet Ferrous Sulfate [Feosol] 325 mg PO BIDWM #60 tab 01/24/18 Ibuprofen [Motrin -] 600 mg PO Q4H PRN #30 tablet 01/24/18 Vitamins (Sjr) - 1 tab PO DAILY #30 tablet 01/24/18 levETIRAcetam [Keppra -] 750 mg PO BID tablet 01/24/18 Asthma: No Cancer: No Cardiac Disorders: No COPD: No Diabetes: No HTN: No Seizures: Yes Thyroid Disease: No - Reproductive History (#): 1 Para: 0 - Suicide/Smoking/Psychosocial Hx Smoking History: Former smoker Have you smoked in the past 12 months: No If you are a former smoker, when did you quit?: prior to Hx Alcohol Use: No Drug/Substance Use Hx: No Hx Substance Use Treatment: No Review of Systems - Review of Systems Able to Perform ROS?: Yes Is the patient limited German proficient: Yes Constitutional: No: Fever, Weakness HEENTM: No: Throat Pain, Difficulty Swallowing Respiratory: No: Cough, Shortness of Breath Cardiac (ROS): No: Chest Pain, Chest Tightness ABD/GI: No: Diarrhea, Nausea, Vomiting Neurological: Yes: Seizure. No: Headache, Weakness *Physical Exam - Physical Exam Comments: 04/25/18 18:08 GENERAL: A&Ox3, no acute distress EYES: PERRLA, EOMI ENT: Moist mucus membranes, small amount of blood noted on the R side of anterior tongue NECK: No JVD LUNGS: CTA, no wheezes HEART: RRR, no murmurs ABDOMEN: Soft, nontender, BS present MUSCULOSKELETAL: No CVA Tenderness EXTREMITIES: 2+ pulses, no edema. NEUROLOGICAL: Cranial nerves II-XII intact. Medical Decision Making - Medical Decision Making 04/25/18 18:09 22 year old female hx epilepsy presented s/p seizure -patient likely underdosed on keppra -keppra level -d/w Dr. Peace, will load with 1500 of keppra, reassess, and if stable send home 04/25/18 18:25 *DC/Admit/Observation/Transfer Diagnosis at time of Disposition: Seizure - Discharge Dispostion Disposition: HOME Condition at time of disposition: Stable Decision to Admit order: No - Referrals Referrals: Alex Peace MD [Staff Physician] - - Patient Instructions Additional Instructions: You were seen in the hospital for seizure. 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 Please make an appointment with Dr. Peace within 1 week of discharge. If you have any more seizures, fevers, chills, nausea, vomiting, diarrhea, chest pain or shortness of breath, please return to the emergency room. - Post Discharge Activity
[2018-04-25 18:09] VITALS: TEMP 98.1; BMI 26.7
[2018-04-25 20:45] VITALS: BP 111/73; PULSE 81
[2018-04-26 10:52] LABS: ALBUMIN 4.1 g/dl (3.4-5.0); ALK PHOS 70 U/L (45-117); ANION GAP 6 (8-16); BILIRUBIN,TOTAL 0.4 mg/dL (0.2-1.0); BLOOD UREA NITROGEN 12 mg/dL (7-18); CALCIUM 9.2 mg/dL (8.5-10.1); CHLORIDE 106 mmol/L (98-107); CO2 26 mmol/L (21-32); CREATININE 0.7 mg/dL (0.55-1.02); GLUCOSE,RANDOM 83 mg/dL (74-106); POTASSIUM 4.4 mmol/L (3.5-5.1); SGOT/AST 20 U/L (15-37); SGPT/ALT 22 U/L (12-78); SODIUM 138 mmol/L (136-145)
== END 2018-04-25 21:22 | disposition home or self-care (01) ==
LOC: JER 16:53
PROC: 3E033GC Introduction of Other Therapeutic Substance into Peripheral Vein, Percutaneous Approach (ICD-10-PCS; principal; 2018-04-25)
DX: G40.909 Epilepsy, unspecified, not intractable, without status epilepticus (principal); Z87.891 Personal history of nicotine dependence
CPT/HCPCS: 36415; 80053; 80185; 96374; 99283-25

== ENCOUNTER 2018-11-03 10:06 | Emergency (ER) | payer OTHER ==
[2018-11-03 10:19] VITALS: BP 114/95; PULSE 78; TEMP 97.3; BMI 25.4
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
[2018-11-03 12:40] LABS: BASO % 0.5 % (0-2.0); EOS % 1.9 % (0-4.5); HEMATOCRIT 36.4 % (32.4-45.2); HEMOGLOBIN 12.6 GM/dL (10.7-15.3); LYMPH % 28.9 % (8-40); MCH 30.2 pg (25.7-33.7); MCHC 34.7 g/dl (32.0-36.0); MEAN CELL VOLUME 87.2 fl (80-96); MONO % 5.5 % (3.8-10.2); NEUT % 63.2 % (42.8-82.8); PLATELET COUNT 191 K/MM3 (134-434); RBC 4.17 M/mm3 (3.60-5.2); RDW 13.4 % (11.6-15.6); WHITE BLOOD COUNT 7.3 K/mm3 (4.0-10.0)
[2018-11-03 13:18] LABS: ALK PHOS 78 U/L (45-117); ANION GAP 5 MMOL/L (8-16); BILIRUBIN,TOTAL 0.4 mg/dL (0.2-1); BLOOD UREA NITROGEN 11 mg/dL (7-18); CALCIUM 9.6 mg/dL (8.5-10.1); CHLORIDE 106 mmol/L (98-107); CO2 27 mmol/L (21-32); CREATININE 0.6 mg/dL (0.55-1.3); GLUCOSE,RANDOM 87 mg/dL (74-106); POTASSIUM 4.3 mmol/L (3.5-5.1); SGOT/AST 11 U/L (15-37); SGPT/ALT 16 U/L (13-61); SODIUM 138 mmol/L (136-145); TOT PROT 7.7 g/dl (6.4-8.2)
== END 2018-11-03 13:35 | disposition home or self-care (01) ==
LOC: JERFT 10:06
DX: K80.20 Calculus of gallbladder without cholecystitis without obstruction (principal); R51 Headache
CPT/HCPCS: 36415; 76705-TC; 80053; 85025; 99281-25